=== PATIENT | male | born 1965 | race Caucasian/White ===

== ENCOUNTER → 2024-02-26 11:04 | Outpatient (CLI) | payer OTHER, SELFPAY | LOC: WC 11:06 | PROVIDERS: Referring Provider Physician Assistant Medical; Visit Provider Surgery | DX: E11.621 Type 2 diabetes mellitus with foot ulcer (principal); L97.312 Non-pressure chronic ulcer of right ankle with fat layer exposed; L53.9 Erythematous condition, unspecified; R60.0 Localized edema; I10 Essential (primary) hypertension; M25.571 Pain in right ankle and joints of right foot | CPT/HCPCS: 11042; 99203; 99213 ==

== ENCOUNTER → 2024-02-29 09:25 | Outpatient (CLI) | payer OTHER, SELFPAY | PROVIDERS: PCP Family Medicine; Referring Provider Physician Assistant Medical; Visit Provider Physician Assistant | DX: L97.312 Non-pressure chronic ulcer of right ankle with fat layer exposed (principal); I87.2 Venous insufficiency (chronic) (peripheral); R60.0 Localized edema; L53.9 Erythematous condition, unspecified | CPT/HCPCS: 29581 ==

== ENCOUNTER → 2024-03-03 09:11 | Outpatient (CLI) | payer OTHER, SELFPAY | PROVIDERS: PCP Family Medicine; Referring Provider Physician Assistant Medical; Visit Provider Surgery | DX: L97.312 Non-pressure chronic ulcer of right ankle with fat layer exposed (principal); I87.2 Venous insufficiency (chronic) (peripheral); L53.9 Erythematous condition, unspecified; R60.0 Localized edema | CPT/HCPCS: 29581 ==

== ENCOUNTER → 2024-03-03 09:28 | Outpatient (CLI) | payer OTHER, SELFPAY ==
[2024-03-03 10:07] LABS: Hematocrit 40.7 % (41-53); Hemoglobin 13.8 g/dL (13.5-17.5); Mean Corpuscular HGB Conc 33.9 % (30-36); Mean Corpuscular Hemoglobin 31.5 PG (26-34); Mean Corpuscular Volume 93.2 fL (80-100); Platelet Count 303 X10^3/uL (150-400); Red Blood Cell Count 4.37 X10^6/uL (4.5-5.9); Red Cell Distribution Width 13.6 % (11.6-14.8); White Blood Cell Count 5.6 X10^3/uL (4.5-11.0)
[2024-03-03 10:14] LABS: Hemoglobin A1C% w Est Avg Glu 6.6 % (4.0-6.0)
[2024-03-03 10:26] LABS: Alanine Aminotransferase 22 IU/L (<50); Albumin 4.3 g/dL (3.5-5.0); Albumin Globulin Ratio 1.9 (1.0-2.8); Alkaline Phosphatase 57 U/L (38-126); Aspartate Aminotransferase 27 IU/L (17-59); BUN Creatinine Ratio 23.8 (6-22); Bilirubin Total 0.5 mg/dL (0.2-1.3); Blood Urea Nitrogen 20 mg/dL (9-20); Calcium 9.1 mg/dL (8.4-10.2); Carbon Dioxide 30 mmol/L (22-32); Chloride 101 mmol/L (98-107); Cholesterol 172 mg/dL (140-199); Estimated Glomerular Filt Rate > 60 mL/min (>60); Globulin 2.3 g/dL (1.7-4.1); Glucose 91 mg/dL (80-110); HDL Cholesterol 55 mg/dL (40-60); HEMOLYSIS < 15 (0-50); LDL Cholesterol Calculated 103 mg/dL (<100); Potassium 4.3 mmol/L (3.4-5.1); Sodium 136 mmol/L (137-145); Total Protein 6.6 g/dL (6.3-8.2); Triglycerides 69 mg/dL (35-150)
[2024-03-03 10:43] LABS: Vitamin D 25 Hydroxy (D3) 58.3 ng/mL (30.0-100.0)
[2024-03-03 10:58] LABS: Microalbumin Urine Random 0.7 mg/dL (0-1.6)
[2024-03-03 15:40] LABS: HIV 1 & 2 Ab/Ag 4th Gen Combo NEGATIVE (NEGATIVE); Hep C Virus Ab w/Reflex Quant NEGATIVE s/c (NEGATIVE)
== END ==
PROVIDERS: PCP Family Medicine; Referring Provider Family Medicine; Visit Provider Family Medicine
DX: Z13.220 Encounter for screening for lipoid disorders (principal); Z13.21 Encounter for screening for nutritional disorder; E11.9 Type 2 diabetes mellitus without complications; I10 Essential (primary) hypertension; L97.312 Non-pressure chronic ulcer of right ankle with fat layer exposed; I87.2 Venous insufficiency (chronic) (peripheral); L53.9 Erythematous condition, unspecified; R60.0 Localized edema
CPT/HCPCS: 29581; 36415; 80053; 80061; 82043; 82306; 82570; 83036; 85027; 86803; 87389

== ENCOUNTER → 2024-03-06 09:05 | Outpatient (CLI) | payer OTHER, SELFPAY | LOC: WC 09:07 | PROVIDERS: PCP Family Medicine; Referring Provider Physician Assistant Medical; Visit Provider Surgery | DX: L97.312 Non-pressure chronic ulcer of right ankle with fat layer exposed (principal); I87.2 Venous insufficiency (chronic) (peripheral); E11.622 Type 2 diabetes mellitus with other skin ulcer; R60.0 Localized edema; L53.9 Erythematous condition, unspecified; I10 Essential (primary) hypertension | CPT/HCPCS: 11042; 87070; 87075; 87077; 87147; 87186; 87205 ==

== ENCOUNTER → 2024-03-10 10:11 | Outpatient (CLI) | payer OTHER, SELFPAY | PROVIDERS: PCP Family Medicine; Referring Provider Physician Assistant Medical; Visit Provider Surgery | DX: L97.312 Non-pressure chronic ulcer of right ankle with fat layer exposed (principal); I87.2 Venous insufficiency (chronic) (peripheral); R60.0 Localized edema; L53.9 Erythematous condition, unspecified | CPT/HCPCS: 29581 ==

== ENCOUNTER → 2024-03-13 11:21 | Outpatient (CLI) | payer OTHER, SELFPAY | LOC: WC 11:22 | PROVIDERS: PCP Family Medicine; Referring Provider Physician Assistant Medical; Visit Provider Surgery | DX: I87.2 Venous insufficiency (chronic) (peripheral) (principal); L97.312 Non-pressure chronic ulcer of right ankle with fat layer exposed; R60.0 Localized edema; E11.622 Type 2 diabetes mellitus with other skin ulcer; I10 Essential (primary) hypertension | CPT/HCPCS: 11042 ==

== ENCOUNTER → 2024-03-17 08:54 | Outpatient (CLI) | payer OTHER, SELFPAY ==
--- NOTE | 2024-03-17 08:55 | DI.US.S_ITS ---
PROCEDURE: US VENOUS INSUFFICIENCY LTD INDICATIONS: Venous ulcer of RLE TECHNIQUE: Real time scanning was performed of the right lower extremity venous system, with imaging documentation, as well as Color and pulse Doppler interrogation. COMPARISON: None. FINDINGS: RIGHT LOWER EXTREMITY: Common femoral, femoral, popliteal, calf veins are patent. There is reflux in the common femoral vein 2.7 seconds Greater saphenous vein (GSV): Normally 4 mm or less in diameter. Saphenofemoral junction (SFJ): 6.2 mm. Reflux is present. 6 seconds. Proximal GSV: 3 mm. No reflux. Mid GSV: 2 mm. No reflux. Distal GSV: Closed Calf GSV: Closed Anterior accessory GSV (AAGSV): Anatomic variant is present across anterior thigh. Proximal accessory GSV: 4 mm. No reflux. Mid accessory GSV: 3 mm. 0.4 seconds reflux. Distal accessory GSV: 2 mm No reflux. Small saphenous vein (SSV): Posterior calf: 2 mm. No reflux. Vein of Giacomini (posterior thigh connection between GSV and SSV): Anatomic variant not seen. Clinical Tech veins: Thigh: Not seen. Calf: Location proximal, diameter 3 mm. Reflux 0.4 seconds Location distal, diameter 4 mm. Reflux 0.8 seconds IMPRESSION: Occluded greater saphenous vein mid distal due to prior treatment. Venous reflux in the CFV, SFJ, and calf perforating vein. Dictated by: Darryl Wellington M.D. on 03/20/2024 at 10:48 Approved by: Darryl Wellington M.D. on 03/20/2024 at 11:02
== END ==
PROVIDERS: PCP Family Medicine; Referring Provider Surgery; Visit Provider Surgery
DX: I87.311 Chronic venous hypertension (idiopathic) with ulcer of right lower extremity (principal); L97.312 Non-pressure chronic ulcer of right ankle with fat layer exposed; I82.811 Embolism and thrombosis of superficial veins of right lower extremity
CPT/HCPCS: 93971

== ENCOUNTER → 2024-03-17 10:34 | Outpatient (CLI) | payer OTHER, SELFPAY | PROVIDERS: PCP Family Medicine; Referring Provider Physician Assistant Medical; Visit Provider Surgery | DX: I87.2 Venous insufficiency (chronic) (peripheral) (principal); L97.312 Non-pressure chronic ulcer of right ankle with fat layer exposed; L53.8 Other specified erythematous conditions; R60.0 Localized edema | CPT/HCPCS: 29581 ==

== ENCOUNTER → 2024-03-20 10:12 | Outpatient (CLI) | payer OTHER, SELFPAY | LOC: WC 10:13 | PROVIDERS: PCP Family Medicine; Referring Provider Physician Assistant Medical; Visit Provider Surgery | DX: I87.2 Venous insufficiency (chronic) (peripheral) (principal); L97.312 Non-pressure chronic ulcer of right ankle with fat layer exposed; E11.622 Type 2 diabetes mellitus with other skin ulcer; L53.8 Other specified erythematous conditions; R60.0 Localized edema | CPT/HCPCS: 11042; 99213 ==

== ENCOUNTER → 2024-03-24 14:28 | Outpatient (CLI) | payer OTHER, SELFPAY | LOC: WC 14:29 | PROVIDERS: PCP Family Medicine; Referring Provider Physician Assistant Medical; Visit Provider Surgery | DX: I87.2 Venous insufficiency (chronic) (peripheral) (principal); L97.312 Non-pressure chronic ulcer of right ankle with fat layer exposed; L53.8 Other specified erythematous conditions; R60.0 Localized edema | CPT/HCPCS: 29581 ==

== ENCOUNTER → 2024-03-27 10:59 | Outpatient (CLI) | payer OTHER, SELFPAY | LOC: WC 11:09 | PROVIDERS: PCP Family Medicine; Referring Provider Physician Assistant Medical; Visit Provider Surgery | DX: I87.2 Venous insufficiency (chronic) (peripheral) (principal); L97.312 Non-pressure chronic ulcer of right ankle with fat layer exposed; E11.622 Type 2 diabetes mellitus with other skin ulcer; L53.8 Other specified erythematous conditions | CPT/HCPCS: 11042; 99213 ==

== ENCOUNTER → 2024-03-31 10:23 | Outpatient (CLI) | payer OTHER, SELFPAY | LOC: WC 10:24 | PROVIDERS: PCP Family Medicine; Referring Provider Physician Assistant Medical; Visit Provider Surgery | DX: I87.2 Venous insufficiency (chronic) (peripheral) (principal); L97.312 Non-pressure chronic ulcer of right ankle with fat layer exposed; L53.8 Other specified erythematous conditions; R60.0 Localized edema | CPT/HCPCS: 29581 ==

== ENCOUNTER → 2024-04-03 08:38 | Outpatient (CLI) | payer OTHER, SELFPAY | LOC: WC 08:39 | PROVIDERS: PCP Family Medicine; Referring Provider Physician Assistant Medical; Visit Provider Surgery | DX: I87.2 Venous insufficiency (chronic) (peripheral) (principal); L97.312 Non-pressure chronic ulcer of right ankle with fat layer exposed; E11.622 Type 2 diabetes mellitus with other skin ulcer; L53.8 Other specified erythematous conditions; R60.0 Localized edema | CPT/HCPCS: 11042 ==

== ENCOUNTER → 2024-04-07 08:47 | Outpatient (CLI) | payer OTHER, SELFPAY | LOC: WC 08:48 | PROVIDERS: PCP Family Medicine; Referring Provider Physician Assistant Medical; Visit Provider Surgery | DX: L97.312 Non-pressure chronic ulcer of right ankle with fat layer exposed (principal); I87.2 Venous insufficiency (chronic) (peripheral); R60.0 Localized edema | CPT/HCPCS: 29581 ==

== ENCOUNTER → 2024-04-10 14:55 | Outpatient (CLI) | payer OTHER, SELFPAY | PROVIDERS: PCP Family Medicine; Referring Provider Physician Assistant Medical; Visit Provider Surgery | DX: L97.312 Non-pressure chronic ulcer of right ankle with fat layer exposed (principal); I87.2 Venous insufficiency (chronic) (peripheral); R60.0 Localized edema; E11.622 Type 2 diabetes mellitus with other skin ulcer; I10 Essential (primary) hypertension | CPT/HCPCS: 11042 ==

== ENCOUNTER → 2024-04-14 15:11 | Outpatient (CLI) | payer OTHER, SELFPAY | LOC: WC 15:12 | PROVIDERS: PCP Family Medicine; Referring Provider Physician Assistant Medical; Visit Provider Surgery | DX: I87.2 Venous insufficiency (chronic) (peripheral) (principal); L97.312 Non-pressure chronic ulcer of right ankle with fat layer exposed; L98.8 Other specified disorders of the skin and subcutaneous tissue; R60.0 Localized edema | CPT/HCPCS: 29581 ==

== ENCOUNTER → 2024-04-17 15:16 | Outpatient (CLI) | payer OTHER, SELFPAY | LOC: WC 15:17 | PROVIDERS: PCP Family Medicine; Referring Provider Physician Assistant Medical; Visit Provider Surgery | DX: I87.2 Venous insufficiency (chronic) (peripheral) (principal); L97.312 Non-pressure chronic ulcer of right ankle with fat layer exposed; E11.622 Type 2 diabetes mellitus with other skin ulcer; L98.8 Other specified disorders of the skin and subcutaneous tissue; R60.0 Localized edema; R23.4 Changes in skin texture | CPT/HCPCS: 11042 ==

== ENCOUNTER → 2024-04-21 09:07 | Outpatient (CLI) | payer OTHER, SELFPAY | LOC: WC 04-23 09:09 | PROVIDERS: PCP Family Medicine; Referring Provider Family Medicine; Visit Provider Surgery | DX: I87.2 Venous insufficiency (chronic) (peripheral) (principal); L97.312 Non-pressure chronic ulcer of right ankle with fat layer exposed; L98.8 Other specified disorders of the skin and subcutaneous tissue; L84 Corns and callosities | CPT/HCPCS: 29581 ==

== ENCOUNTER → 2024-04-24 14:10 | Outpatient (CLI) | payer OTHER, SELFPAY ==
--- NOTE | 2024-04-24 | OV.WND_ITS ---
PROGRESS NOTE DETAILS PATIENT NAME: SATINDER LEW PATIENT NUMBER: [id number] CLINICIAN: NATHAN MEADE PATIENT DATE OF : 1965 PHYSICIAN / GRIP WRAPPER: MAK BA PATIENT SUBJECTIVE CHIEF COMPLAINT THIS INFORMATION WAS OBTAINED FROM THE PATIENT. OCCASIONAL TWINGES WOUND RIGHT ANKLE ALLERGIES NO KNOWN ALLERGIES HPI THIS INFORMATION WAS OBTAINED FROM THE PATIENT. THE FOLLOWING HPI ELEMENTS WERE DOCUMENTED FOR THE PATIENT'S WOUND: LOCATION: RIGHT ANKLE DURATION: 01/08/24 CONTEXT: VENOUS THE PATIENT IS A 58-YEAR-OLD MALE WITH DIABETES AND HYPERTENSION WHO RETURNS TODAY FOR FOLLOW UP OF A VENOUS ULCER ON THE MEDIAL RIGHT ANKLE. THE PATIENT IS RECEIVING DRESSING CHANGES WITH SILVER COLLAGEN AND VASHE WITH MULTILAYER COMPRESSION TWICE A WEEK. HE IS BACK WORKING FULL-TIME AND HAS NOT HAD ANY SIGNIFICANT DISCOMFORT. HE HAS NOT NOTED ANY REDNESS OR SWELLING NOR HAS HE HAD ANY FEVER OR CHILLS. THE PATIENT 1ST DEVELOPED AN ULCER ON HIS RIGHT ANKLE IN 2008 AND AGAIN IN 2013 AND IN 2018. HE UNDERWENT BILATERAL VEIN ABLATION IN 2018. THE PATIENT REPORTS A GOOD APPETITE AND DENIES HAVING ANY OTHER RECENT CHANGES IN HIS OVERALL HEALTH. ABIS WERE 1.21 ON BOTH SIDES. HEMOGLOBIN A1C FROM DECEMBER 09, 2023 WAS 7.5. THE PATIENT IS REQUIRED STAND FOR 8 HOURS A DAY AT HIS JOB. ON EXAM TODAY THE ULCERS ALMOST COMPLETELY HEALED. THE PATIENT WAS SEEN BY VASCULAR SURGERY AND NO INTERVENTION WAS RECOMMENDED AT THIS TIME SINCE THE ULCER IS IMPROVING. LABS: 03/17/24: VENOUS ULTRASOUND OF RIGHT LOWER EXTREMITY SHOWED VENOUS REFLUX IN THE COMMON FEMORAL VEIN, SAPHENOUS FEMORAL JUNCTION, AND CALF PERFORATING VEIN 03/06/24: CULTURES GREW STAPHYLOCOCCUS AUREUS. 03/03/24: WBC 5.6, HEMOGLOBIN 13.8, HCT 40.7, ELECTROLYTES UNREMARKABLE, GFR GREATER THAN 60, HEMOGLOBIN A1C 6.6, LFTS NORMAL FAMILY HISTORY THIS INFORMATION WAS OBTAINED FROM THE PATIENT. DIABETES- PATERNAL GRANDPARENTS HEART DISEASE- FATHER SOCIAL HISTORY THIS INFORMATION WAS OBTAINED FROM THE PATIENT. SATINDER LEW [id number] 1965 NEVER SMOKER ALCOHOL USE: NONE CAFFEINE USE: 2 CUPS/DAY LIVES IN: RENTAL HOME MARITAL STATUS: - CHRISTEN OCCUPATION: [employer] MEDICAL HISTORY THIS INFORMATION WAS OBTAINED FROM THE PATIENT. PATIENT HAS A MEDICAL HISTORY OF: DIABETES HYPERTENSION DYSTONIA VENOUS INSUFFIENCY ADDITIONAL INFORMATION DOES PATIENT HAVE A HISTORY OF CANCER? YES? COMPLETE ALL QUESTIONS.: NO SURGICAL HISTORY THIS INFORMATION WAS OBTAINED FROM THE PATIENT. PATIENT HAS A SURGICAL HISTORY OF: R KNEE SURGERY- (1994 X2: MENISCUS AND ACL) WISDOM TOOTH REMOVAL- () VENOUS ABLATIONS (BLE)- (2018) REVIEW OF SYSTEMS (ROS) THIS INFORMATION WAS OBTAINED FROM THE PATIENT. COMPLAINTS AND SYMPTOMS PATIENT COM PLAINS OF: CO-MORBID CONDITIONS: DIABETES, HYPERTENSION, VENOUS INSUFFIENCY PRIOR WOUND HISTORY: DRAINAGE, PAIN PATIENT DENIES COM PLAINTS OR SY M PTOM S RELATED TO: CARDIOVASCULAR (CENTRAL): CHEST PAIN, DYSPNEA ON EXERTION CONSTITUTIONAL SYMPTOMS (GENERAL HEALTH): CHILLS, FEVER, LOSS OF APPETITE GASTROINTESTINAL (GI): LOSS OF APPETITE PRIOR WOUND HISTORY: BLEEDING, ERYTHEMA, MALODOR RESPIRATORY: COUGH, SHORTNESS OF BREATH OBJECTIVE VITALS HEIGHT/LENGTH: 67 IN (170.18 CM), WEIGHT: 216 LBS (98.18 KGS), BMI: 33.8, TEMPERATURE: 97 ?F (36.11 ?C), PULSE: 72 BPM, RESPIRATORY RATE: 16 BREATHS/MIN, BLOOD PRESSURE: 138/71 MMHG, PULSE OXIMETRY: 97 %. PHYSICAL EXAM SATINDER LEW [id number] 1965 CONSTITUTIONAL: VITAL SIGNS REVIEWED AND NOTED. WELL DEVELOPED, WELL NOURISHED, AND IN NO ACUTE DISTRESS. ALERT AND ORIENTED X3. RESPIRATORY: EVEN RESPIRATIONS WITHOUT USE OF ACCESSORY MUSCLES. NO INTERCOASTAL RETRACTIONS NOTED. EVEN AND NON LABORED RESPIRATION. INTEGUMENTARY (HAIR, SKIN): MILD CHRONIC STASIS DERMATITIS. NO SWELLING. SEE WOUND ASSESSMENT. SKIN WARM AND DRY. NO RASHES. NEUROLOGICAL: SENSATION: SYMMETRIC FUNCTION BY INFORMAL OBSERVATION. PSYCHIATRIC: ORIENTATION TO TIME, PLACE AND PERSON: NORMAL AFFECT WITH NORMAL THOUGHT PATTERN. ADDITIONAL INFORMATION THE PATIENT'S POTENTIAL TO HEAL IS: GOOD. LOWER EXTREMITY ASSESSMENT EDEMA ASSESSMENT: LEFT EXTREMITY: EDEMA IS PRESENT COMPRESSION DEVICE IN USE: YES DEVICE USED CORRECTLY: YES DEVICE IN USE: COMPRESSION STOCKINGS CALF MEASUREMENT 36 CM FROM HEEL WITH LEFT MEASUREMENT OF 39 CM ANKLE MEASUREMENT 5 CM FROM ANKLE WITH LEFT MEASUREMENT OF 23.5 CM FOOT MEASUREMENT 15 CM FROM HEEL WITH LEFT MEASUREMENT OF 24 CM RIGHT EXTREMITY: EDEMA IS PRESENT COMPRESSION DEVICE IN USE: YES DEVICE USED CORRECTLY: YES DEVICE IN USE: COBAN II VASCULAR ASSESSMENT LEFT EXTREMITY COLORS, HAIR GROWTH, AND CONDITIONS: EXTREMITY COLOR: WNL HAIR GROWTH ON EXTREMITY: YES TEMPERATURE OF EXTREMITY: WARM CAPILARY REFILL: < 3 SECONDS ERYTHEMA: NO DEPENDENT RUBOR: NO HYPERPIGMENTATION: YES LIPODERMATOSCLEROSIS: NO RIGHT EXTREMITY COLORS, HAIR GROWTH, AND CONDITIONS: EXTREMITY COLOR: WNL HAIR GROWTH ON EXTREMITY: YES TEMPERATURE OF EXTREMITY: WARM CAPILARY REFILL: < 3 SECONDS ERYTHEMA: YES DEPENDENT RUBOR: NO HYPERPIGMENTATION: YES LIPODERMATOSCLEROSIS: NO OFF-LOADING: LEFT OFF-LOADING DEVICE IN USE: NO RIGHT OFF-LOADING DEVICE IN USE: YES DEVICE USED CORRECTLY: YES OFF-LOADNG DEVICE USED: YES WOUND ASSESSMENT(S) WOUND #1 RIGHT, MEDIAL ANKLE IS A CHRONIC FULL THICKNESS VENOUS ULCER ACQUIRED ON 01/08/2024 AND HAS RECEIVED A STATUS OF NOT HEALED. INITIAL WOUND ENCOUNTER MEASUREMENTS ARE 0.1CM LENGTH X 0.1CM WIDTH X 0.1 CM DEPTH, WITH AN AREA OF 0.01 SQ CM AND A VOLUME OF 0.001 CUBIC CM.INITIAL WOUND ENCOUNTER PREVIOUS MEASUREMENTS FROM 04/21/2024 ARE 1CM LENGTH X 0.8CM WIDTH X 0.1CM DEPTH, WITH AN AREA OF 0.8 SQ CM AND A VOLUME OF 0.08 CUBIC CM. ADIPOSE IS EXPOSED. NO TUNNELING HAS BEEN NOTED. NO SINUS SATINDER LEW [id number] 1965 TRACT HAS BEEN NOTED. NO UNDERMINING HAS BEEN NOTED. THERE IS A SMALL AMOUNT OF SEROSANGUINEOUS DRAINAGE NOTED WHICH HAS NO ODOR. THE PATIENT REPORTS A WOUND PAIN OF LEVEL 0/10. THE WOUND MARGIN IS ATTACHED WOUND BED HAS YES, BRIGHT RED, PINK, SPONGY, GRANULATION, YES SLOUGH, NO ESCHAR, YES EPITHELIALIZATION. THE PERIWOUND SKIN EXHIBITED EDEMA, MACERATION AND HEMOSIDEROSIS. THE PERIWOUND SKIN DID NOT EXHIBIT BRAWNY INDURATION, EXCORIATION, INDURATION, CALLUS, CREPITUS, FLUCTUANCE, RASH, ATROPHIE DARBY, CYANOSIS, ECCHYMOSIS, ERYTHEMA, PALLOR AND RUBOR. THE PERIWOUND SKIN WAS MOIST. THE PERIWOUND SKIN WAS NOT FRIABLE AND DRY/SCALY. THE TEMPERATURE OF THE PERIWOUND SKIN IS WNL. PERIWOUND SKIN DOES NOT EXHIBIT SIGNS OR SYMPTOMS OF INFECTION. LOCAL PULSE IS PALPABLE. ADDITIONAL INFORMATION OTHER DEVITALIZED TISSUE PRESENT: BIOFILM GLENIS/VASCULAR COMPLETED?: YES: 02/26/2024 RESULTS?: R: 1.21 L: 1.21 ASSESSMENT ACTIVE PROBLEMS ICD-10 (ENCOUNTER DIAGNOSIS) I87.311 - CHRONIC VENOUS HYPERTENSION (IDIOPATHIC) WITH ULCER OF RIGHT LOWER EXTREMITY (ENCOUNTER DIAGNOSIS) L97.312 - NON-PRESSURE CHRONIC ULCER OF RIGHT ANKLE WITH FAT LAYER EXPOSED (ENCOUNTER DIAGNOSIS) E11.622 - TYPE 2 DIABETES MELLITUS WITH OTHER SKIN ULCER GENERAL NOTES VENOUS ULCER MEDIAL RIGHT ANKLE ALMOST COMPLETELY HEALED THE FOLLOWING FACTORS HAVE BEEN IDENTIFIED THAT MAY AFFECT WOUND HEALING: DEVITALIZED TISSUE BIOFILM VENOUS INSUFFICIENCY DIABETES GOALS: REMOVE DEVITALIZED TISSUE REMOVE AND PREVENT BIOFILM COMPRESSION VEIN MAPPING PROTEIN SUPPLEMENTATION WOUND CLOSURE PREVENT RECURRENCE PLAN: CONTINUE DRESSING CHANGES WITH SILVER COLLAGEN AND VASHE WITH MULTILAYER COMPRESSION TWICE A WEEK. CONTINUE PROTEIN SUPPLEMENTATION, FOLLOW UP IN 1 WEEK FOR A RECHECK. PROCEDURES WOUND #1 WOUND #1 (VENOUS ULCER) IS LOCATED ON THE RIGHT, MEDIAL ANKLE. A MULTILAYER COMPRESSION PROCEDURE WAS PERFORMED FOR THE LOWER LEFT EXTREMITY BY NATHAN MEADE RN. A 2 LAYER COBAN WRAP WAS APPLIED. THE PROCEDURE WAS TOLERATED WELL WITH A PAIN LEVEL OF 0 THROUGHOUT AND A PAIN LEVEL OF 0 FOLLOWING THE PROCEDURE. GENERAL NOTES SATINDER LEW [id number] 1965 COBAN 2 LAYER COMPRESSION WRAP SYSTEM APPLIED PER UPPER CUTTER OUT'S GUIDELINES. PLAN WOUND ORDERS: WOUND #1 RIGHT, MEDIAL ANKLE HAND HYGIENE HAND HYGIENE - WASH HANDS BEFORE AND AFTER WOUND CARE. CALL THE WOUND CENTER AT [phone] IF YOU HAVE SIGNS OR SYMPTOMS OF INFECTION, FEVER CHILLS OR SHAKES, INCREASED DRAINAGE, INCREASED ODOR OR UNUSUAL REDNESS. AFTER WOUND CENTER HOURS PLEASE NOTIFY YOUR PCP OR GO TO THE EMERGENCY ROOM. CLEANSER CLEANSE WOUND WITH NORMAL SALINE CLEANSE WOUND WITH HYPOCHLOROUS ACID (VASHE OR SIMILAR) THEN APPLY HYPOCHLOROUS ACID SOAKED 4X4 GAUZE TO WOUND BED FOR 5-10 MINUTES AFTER WOUND ASSESSMENT COMPLETED. MAY SHOWER, LEAVE WOUND DRESSING INTACT. COVER WOUND DRESSING WITH A WATERPROOF BARRIER. KEEP DRESSING DRY. NO BATHS PLEASE. PROCEDURE / ANESTHETIC 5% TOPICAL LIDOCAINE TO WOUND BED PRIOR TO PROCEDURE, IN CLINIC ONLY. DRESSING ORDERS APPLY DRESSING(S) AND SECURE WITH: - SILVER COLLAGEN PURACOL MOISTENED WITH NORMAL SALINE, SILICONE BORDER FOAM DRESSING CHANGE FREQUENCY LEAVE DRESSING INTACT UNTIL YOUR NEXT WOUND CENTER APPOINTMENT. KEEP DRY. IF DRESSING BECOMES SOILED OR WET CONTACT THE WOUND CENTER AT [phone]. ADDITIONAL ORDERS: COMPRESSION/EDEMA CONTROL ELEVATE LEG(S) ABOVE THE LEVEL OF THE HEART MUCH POSSIBLE. AVOID STANDING IN ONE POSITION FOR MORE THAN 10 MINUTES. AVOID SITTING WITH LEGS DOWN. DO NOT CROSS LEGS WHEN SITTING. APPLY MULTI LAYER WRAP TO AFFECTED LEG(S) AT 30-40MMHG. - COBAN 2 REGULAR COMPRESSION WRAP SYSTEM TO RIGHT LEG, KEEP WRAP CLEAN AND DRY. DIETARY TAKE VITAMIN C 1000MG BY MOUTH DAILY. TAKE ZINC 25MG BY MOUTH DAILY. INCREASE THE PROTEIN IN YOUR DIET. FOLLOW-UP APPOINTMENTS RETURN APPOINTMENT 1 WEEK - MD APPT SUNDAY. RETURN FOR NURSE VISIT ON DATE NOTED BELOW FOR WOUND ASSESSMENT, MECHANICAL DEBRIDEMENT NECESSARY, AND DRESSING CHANGE ORDERED DURING TODAY'S VISIT: COMPLETE FOR DIAGNOSIS OF: - MONDAYS. SCRIBING ATTESTATION I ATTEST, THE NURSE, THAT I SCRIBED THESE ORDERS FOR THE WOUND CARE PROVIDER. PROVIDER REVIEW AND ATTESTATION: REVIEWED AND EVALUATED LABS. REVIEWED HOSPITAL RECORDS. DISCUSSED THE PLAN OF CARE @ BEDSIDE WITH I AGREE AND ATTEST TO THE ABOVE INFORMATION PROVIDED FROM OTHER LICENSED PROFESSIONALS. PLAN OF CARE: 01. ENSURE/ESTABLISH OPTIMAL BLOOD FLOW : - COMPLETE LOWER EXTREMITY ASSESSMENT STATUS: CONTINUED DATE: 04/24/2024 - PERFORM NON-INVASIVE VASCULAR TESTING (I.E. GLENIS) AND DOCUMENT FINDINGS. CONSIDER REPEATING WHEN WOUND HEALING <40% AFTER 30 DAYS OF WOUND CARE. STATUS: COMPLETED DATE: 02/26/2024 - EVALUATE FOR COMPRESSION THERAPY SATINDER LEW [id number] 1965 STATUS: CONTINUED DATE: 04/24/2024 02. ASSESS FOR/TREAT INFECTION : - EVALUATE FOR SIGNS AND SYMPTOMS OF INFECTION AND DOCUMENT FINDINGS. STATUS: CONTINUED DATE: 03/27/2024 03. DEBRIDE WEEKLY OR MORE OFTEN PRN : - EVALUATE PATIENT IN CENTER WEEKLY TO ASSESS WOUND BED AND MARGINS FOR NEED FOR DEBRIDEMENT. STATUS: CONTINUED DATE: 04/24/2024 - DEBRIDEMENT BY ANY METHOD TO REMOVE DEVITALIZED/NECROTIC TISSUE TO PROMOTE HEALING AND PREVENT FURTHER COMPLICATIONS. GOAL IS TO STIMULATE AND/OR MAINTAIN ACUTE PHASE OF WOUND HEALING BY REDUCING BACTERIAL BURDEN AND DEVITALIZED/NON-VIABLE TISSUE. STATUS: CONTINUED DATE: 04/24/2024 04. OPTIMIZE GLUCOSE CONTROL AND NUTRITION : - ORDER/REVIEW PERTINENT LABS TO EVALUATE RENAL FUNCTION, GLUCOSE CONTROL, AND NUTRITIONAL STATUS. STATUS: CONTINUED DATE: 04/24/2024 - COMPLETE A NUTRITION RISK ASSESSMENT. STATUS: CONTINUED DATE: 04/24/2024 05. OFFLOADING PLAN : - REVIEWED, NOT APPLICABLE 06. OPTIMIZE HOST FACTORS: - ASSESS AND REVIEW PATIENT HISTORY FOR WOUND ETIOLOGY, CO-MORBID CONDITIONS, MEDICATION REGIME, AND SMOKING HISTORY. STATUS: CONTINUED DATE: 04/24/2024 - ASSESS LIFESTYLE FACTORS SUCH SMOKING, ALCOHOL/DRUG ABUSE, EATING HABITS/MALNUTRITION AND ACTIVITY LEVEL. STATUS: CONTINUED DATE: 04/24/2024 07. DRESSING SELECTION : - EVALUATE FOR DRESSING-RELATED FACTORS, SUCH AVAILABILITY, WEAR TIME, ADAPTABILITY AND USE TO BETTER OPTIMIZE WOUND HEALING AND PATIENT COMPLIANCE. STATUS: CONTINUED DATE: 04/24/2024 - EDUCATE THE PATIENT/FAMILY/CAREGIVER TO MONITOR DRESSING DAILY. CHANGE DRESSING ONLY NEEDED BUT NEVER LESS FREQUENTLY THAN WEEKLY SO THAT WOUND BED CAN BE REASSESSED. STATUS: CONTINUED DATE: 04/24/2024 08. ADVANCED MODALITIES : - RE-EVALUATE PLAN OF CARE IF NO EVIDENCE OF HEALING (40% IN 4 WEEKS). STATUS: CONTINUED DATE: 04/24/2024 09. FALL PREVENTION : - COMPLETE FALL ASSESSMENT. STATUS: COMPLETED DATE: 02/26/2024 10. PAIN MANAGEMENT : - COMPLETE PAIN ASSESSMENT STATUS: CONTINUED DATE: 04/24/2024 - INSTRUCT THE PATIENT TO CALL ?TIME-OUT? IF PAIN IS TOO INTENSE DURING PROCEDURE. STATUS: CONTINUED DATE: 04/24/2024 11. MEASURABLE GOALS FOR WOUND HEALING AND/OR HYPERBARIC OXYGEN THERAPY : - DECREASE PAIN STATUS: CONTINUED DATE: 04/24/2024 - WOUND CLOSURE STATUS: CONTINUED DATE: 04/24/2024 - REDUCE EDEMA STATUS: CONTINUED DATE: 04/24/2024 SATINDER LEW [id number] 1965 12. DURATION/FREQUENCY OF WOUND CARE VISITS : - 2X WEEKLY FOR 30 DAYS STATUS: CONTINUED DATE: 04/24/2024 ELECTRONIC SIGNATURE(S) SIGNED BY: DATE: MAK BA MD 04/24/2024 15:47:55 (PT) ENTERED BY: MAK BA MD ON 04/24/2024 15:45:29 (PT) SATINDER LEW [id number] 1965
== END ==
LOC: WC 14:11
PROVIDERS: PCP Family Medicine; Referring Provider Physician Assistant Medical; Visit Provider Surgery
DX: I87.2 Venous insufficiency (chronic) (peripheral) (principal); L97.312 Non-pressure chronic ulcer of right ankle with fat layer exposed; E11.622 Type 2 diabetes mellitus with other skin ulcer; L98.8 Other specified disorders of the skin and subcutaneous tissue; R60.0 Localized edema
CPT/HCPCS: 29581; 99213

== ENCOUNTER → 2024-04-28 15:43 | Outpatient (CLI) | payer OTHER, SELFPAY | LOC: WC 15:44 | PROVIDERS: PCP Family Medicine; Referring Provider Physician Assistant Medical; Visit Provider Surgery | DX: I87.2 Venous insufficiency (chronic) (peripheral) (principal); L97.312 Non-pressure chronic ulcer of right ankle with fat layer exposed; L98.8 Other specified disorders of the skin and subcutaneous tissue; R60.0 Localized edema | CPT/HCPCS: 29581 ==

== ENCOUNTER → 2024-05-01 11:01 | Outpatient (CLI) | payer SELFPAY | PROVIDERS: PCP Family Medicine; Referring Provider Physician Assistant Medical; Visit Provider Surgery | DX: L97.312 Non-pressure chronic ulcer of right ankle with fat layer exposed (principal); I87.2 Venous insufficiency (chronic) (peripheral); E11.622 Type 2 diabetes mellitus with other skin ulcer; R60.0 Localized edema | CPT/HCPCS: 29581; 99213 ==

== ENCOUNTER → 2024-05-06 08:43 | Outpatient (CLI) | payer SELFPAY | LOC: WC 08:46 | PROVIDERS: PCP Family Medicine; Referring Provider Family Medicine; Visit Provider Surgery | DX: I87.311 Chronic venous hypertension (idiopathic) with ulcer of right lower extremity (principal); L97.312 Non-pressure chronic ulcer of right ankle with fat layer exposed; E11.622 Type 2 diabetes mellitus with other skin ulcer; L98.8 Other specified disorders of the skin and subcutaneous tissue; R60.0 Localized edema | CPT/HCPCS: 99213 ==

== ENCOUNTER → 2024-08-30 09:51 | Outpatient (CLI) | payer SELFPAY ==
[2024-08-30 11:24] LABS: Free T4, Direct Thyroxine 0.98 ng/dL (0.78-2.19)
[2024-08-30 11:38] LABS: Thyroid Stimulating Hormone 0.292 uIU/mL (0.47-4.68)
== END ==
PROVIDERS: PCP Family Medicine; Referring Provider Family Medicine; Visit Provider Family Medicine
DX: E07.9 Disorder of thyroid, unspecified (principal); Z12.5 Encounter for screening for malignant neoplasm of prostate
CPT/HCPCS: 36415; 84439; 84443; G0103

== ENCOUNTER → 2024-09-22 07:14 | Outpatient (CLI) | payer OTHER, SELFPAY ==
--- NOTE | 2024-09-22 07:20 | DI.US.S_ITS ---
PROCEDURE: US PERIPH VENOUS LOW EXTREM RT INDICATIONS: Leg swelling TECHNIQUE: Real-time imaging, as well as color and pulse Doppler interrogation, were performed of the lower extremity deep veins from the inguinal ligament to the popliteal fossa, with documentation of the visualized calf veins. COMPARISON: None. FINDINGS: The common femoral, femoral, popliteal, and the visualized calf veins are normally compressible, and free of intraluminal thrombus. Color and pulse Doppler demonstrate normal phasic intraluminal flow. There is normal augmentation response to distal compression maneuver. IMPRESSION: No findings of lower extremity deep venous thrombosis. Dictated by: Yousif Prabhakar M.D. on 09/22/2024 at 8:13 Approved by: Yousif Prabhakar M.D. on 09/22/2024 at 8:13
== END ==
PROVIDERS: PCP Family Medicine; Referring Provider Family Medicine; Visit Provider Family Medicine
DX: I87.2 Venous insufficiency (chronic) (peripheral) (principal); I89.0 Lymphedema, not elsewhere classified; I82.409 Acute embolism and thrombosis of unspecified deep veins of unspecified lower extremity
CPT/HCPCS: 93971

== ENCOUNTER → 2024-12-06 11:33 | Outpatient (CLI) | payer BC, SELFPAY ==
[2024-12-06 12:25] LABS: Hemoglobin A1C% w Est Avg Glu 7.5 % (4.0-6.0)
[2024-12-06 12:32] LABS: Blood Urea Nitrogen 16 mg/dL (9-20); Calcium 9.4 mg/dL (8.4-10.2); Carbon Dioxide 29 mmol/L (22-32); Chloride 101 mmol/L (98-107); Cholesterol 137 mg/dL (140-199); Estimated Glomerular Filt Rate > 60 mL/min (>60); Glucose 124 mg/dL (70-99); HDL Cholesterol 61 mg/dL (40-60); HEMOLYSIS < 15 (0-50); Potassium 4.5 mmol/L (3.4-5.1); Sodium 137 mmol/L (137-145); Triglycerides 54 mg/dL (35-150)
== END ==
LOC: LAB 11:35
PROVIDERS: PCP Family Medicine; Referring Provider Family Medicine; Visit Provider Family Medicine
DX: E11.69 Type 2 diabetes mellitus with other specified complication (principal); Z79.4 Long term (current) use of insulin; I10 Essential (primary) hypertension
CPT/HCPCS: 36415; 80048; 80061; 83036